=== PATIENT | male | born 2000 | race Caucasian/White ===

== ENCOUNTER 2018-11-30 12:25 | Emergency (ER) | payer OTHER ==
[~2018-11-30 12:25] MED LIST: ISOVUE-370 76%-LOCM 1 ML ONE
[2018-11-30 12:54] LABS: #Lymphocytes 1.1 thou/uL (1.20-3.40); #Neutrophils 12.7 thou/uL (1.40-6.50); %Basophils 0.2 % (0.0-1.0); %Eosinophils 0.2 % (0.0-10.0); %Lymphocytes 7.2 % (28.0-48.0); %Monocytes 6.6 % (0.0-4.0); %Neutrophils 85.7 % (31.0-61.0); Hemoglobin 15.4 g/dL (14.0-18.0); Mean Corpuscular HGB CONC 33.7 g/dL (32.0-36.0); Mean Corpuscular Hemoglobin 30.3 pg (25.0-35.0); Mean Corpuscular Volume 90.1 fL (78.0-98.0); Mean Platelet Volume 8.4 fL (7.4-10.4); Platelet Count 296 thou/uL (130-400); RBC Distribution Width 11.3 % (11.5-14.5); Red Blood Cell (RBC) Count 5.07 mill/uL (4.00-5.20); White Blood Cell (WBC) Count 14.8 thou/uL (4.8-10.8)
--- NOTE | 2018-11-30 13:12 | RAD ---
EXAM: CHEST ONE VIEW HISTORY: Shortness of breath and cough since 11/22/2018. COMPARISON: None FINDINGS: The cardiac silhouette and pulmonary vasculature is within normal limits. The lungs are clear. The os seous structures are intact. IMPRESSION: No acute cardiopulmonary process.
[2018-11-30 13:14] LABS: ALT (SGPT) 53 U/L (8-55); AST (SGOT) 38 U/L (5-34); Albumin 4.3 g/dL (3.5-5.0); Alkaline Phosphatase 106 U/L (Less than 750); Anion Gap 15 mmol/L (10-20); BUN (Urea Nitrogen) 17 mg/dL (8.9-20.6); Bilirubin, Total 0.3 mg/dL (0.2-1.2); Calc. Creatinine Clearance 0 mL/min (70-130); Calcium 9.6 mg/dL (7.8-10.44); Carbon Dioxide 25 mmol/L (22-29); Chloride 103 mmol/L (98-107); Estimated GFR-MDRD Greater than 90; Globulin 3.8 g/dL (2.4-3.5); Glucose 118 mg/dL (70-105); Potassium 3.7 mmol/L (3.5-5.1); Protein, Total 8.1 g/dL (6.0-8.3); Sodium 139 mmol/L (136-145)
--- NOTE | 2018-11-30 14:49 | CT ---
CTA CHEST WITH CONTRAST WITH 3D VOLUME RENDERING: Date: 11/30/18 CLINICAL INDICATION: Dyspnea, cough, shortness of breath. FINDINGS: There is no large, central pulmonary embolus. There is heterogeneity of the segmental and subsegmenta l pulmonary arterial branches which does limit assessment and could obscure small peripheral emboli. There is abnormal increased soft tissue density about the left hilum, which encases the left mainstem bronchus and extends into the left hilum. There are also mildly enlarged mediastinal lymph nodes, li mited in assessment due to streak artifact from contrast bolus. There is diffuse abnormal ground-glas s nodular opacity, as well as numerous tree-in-bud opacities throughout each lung. No effusion or pne umothorax. No acute osseous abnormalities. Thoracic aorta is normal in caliber. The incidentally imag ed portions of the spleen reveal splenomegaly. IMPRESSION: 1. Findings consistent with atypical pneumonia, with diffuse abnormal ground-glass nodular opacities throughout each lung, as well as tree-in-bud nodularity. In addition, there is abnormal peribronchia l soft tissue prominence notably about the left mainstem bronchus and within the left hilum, may be o n the basis of adenopathy related to the concomitant infection. 2. Enlarged spleen, partially visualized. Correlate clinically. POS: [facility]
[2018-11-30] MEDS ORDERED: Azithromycin 500 MG VIAL ONE (15:14)
== END 2018-11-30 17:40 | disposition home or self-care (01) ==
LOC: ERS 12:25
DX: J18.9 Pneumonia, unspecified organism (principal)
CPT/HCPCS: 71045; 71275; 80053; 85025; 85379; 93005; 96361; 96365; 96367; J0456; J3490; Q9966